=== PATIENT | male | born 1985 | race Caucasian/White ===

== ENCOUNTER 2019-10-01 16:17 | Emergency (ER) | payer MEDICARE, OTHER ==
[2019-10-01] MEDS ORDERED: Metoclopramide TAB* 10 MG PO ONE (16:34)
[2019-10-01] MEDS ORDERED: Ketorolac TAB * 10 MG TAB PO ONE (16:34)
[2019-10-01] MEDS ORDERED: diPHENhydraMINE PO* 25 MG PO ONE (16:35)
--- NOTE | 2019-10-01 16:36 | ED ---
Headache - HPI Summary HPI Summary: Patient complains of migraine headache 2 days with associated blurred vision, dizziness, nausea and vomiting, and dental pain 5 months. Patient doesn't know if migraine is secondary to dental pain, has appointment in 3 days for 5 teeth to be removed by dental surgery. History of migraines. Denies trauma, fever, cough, sore throat, CP, SOB, diarrhea, abdominal pain, change in urine, change in BM. Medical history is migraines, PTSD, anxiety. Patient has tried hydromorphone at milligrams at 7 AM and again at 3 PM, sumatriptan and Zofran all with no relief. - History Of Current Complaint Chief Complaint: EDHeadache Stated Complaint: HEADACHE Time Seen by Provider: 10/01/19 16:31 Hx Obtained From: Patient, Family/Trailer Rental Clerk Onset/Duration: Gradual Onset, Started days ago Initially Headache Was: Severe Currently Pain Is: Severe Timing: Constant Character: Sharp, Dull, Throbbing, Migraine Location of Headache: Diffuse Aggravating Factor: Exertion, Bright Lights Allevating Factors: Nothing Associated Signs And Symptoms: Dizziness, Nausea, Vomiting, Visual Changes - Allergies/Home Medications Allergies/Adverse Reactions: Allergies Allergy/AdvReac Type Severity Reaction Status Date / Time balsam maria elena Allergy Severe Hives Verified 09/29/19 08:17 formaldehyde Allergy Severe Hives Verified 09/29/19 08:17 penicillin G Allergy Severe Hives/Diff. Verified 09/29/19 08:17 Breathing/I tching prednisone Allergy Severe Itching Verified 09/29/19 08:17 propylene glycol Allergy Severe Hives Verified 09/29/19 08:17 aspirin Allergy Mild Unknown Verified 09/29/19 08:17 Reaction Details adhesive Allergy See Comment Verified 09/29/19 08:17 tomato Allergy Rash Verified 09/29/19 08:17 doxycycline AdvReac Severe GI Upset Verified 09/29/19 08:17 clindamycin AdvReac Nausea Verified 09/29/19 08:17 isopropamide AdvReac Nausea Verified 09/29/19 08:17 cinnamic aldehyde Allergy Severe Hives Uncoded 09/29/19 08:17 Methyldibromo Glutaronitrite Allergy Severe Hives Uncoded 09/29/19 08:17 Seafood Allergy Intermediate GI Upset Uncoded 09/29/19 08:17 rubbing alcohol Allergy Hives Uncoded 09/29/19 08:17 PMH/Surg Hx/FS Hx/Imm Hx Endocrine/Hematology History: Reports: Hx Blood Transfusions Denies: Hx Diabetes, Hx Sickle Cell Disease, Hx Thyroid Disease Cardiovascular History: Denies: Hx Hypertension, Hx Pacemaker/ICD, Other Cardiovascular Problems/ Disorders Respiratory History: Reports: Hx Asthma - HAS INHALER, Hx Chronic Bronchitis, Hx Pneumonia, Other Respiratory Problems/Disorders - History of pneumonia 08/22 Denies: Hx Chronic Obstructive Pulmonary Disease (COPD) GI History: Reports: Hx Gastroesophageal Reflux Disease - PT TAKES TUMS WHEN NEEDED, Hx Irritable Bowel - MILD SINCE REMOVAL OF GALLBLADDER, Hx Jaundice - jaundiced at Denies: Hx Ulcer, Other GI Disorders History: Reports: Hx Kidney Stones - ON AND OFF Denies: Hx Renal Disease, Other Problems/Disorders Musculoskeletal History: Reports: Hx Arthritis - Arthritis, knees and spine, Hx Back Problems Denies: Hx Scoliosis, Other Musculoskeletal History Sensory History: Reports: Hx Contacts or Glasses - GLASSES Denies: Hx Hearing Aid Opthamlomology History: Reports: Hx Contacts or Glasses - GLASSES EENT History: Denies: Hx Deafness Neurological History: Reports: Hx Migraine Denies: Hx Headaches, Other Neuro Impairments/Disorders Psychiatric History: Reports: Hx Anxiety, Hx Depression, Hx Panic Disorder, Hx Post Traumatic Stress Disorder, Hx Inpatient Treatment, Hx Suicide Attempt - States not in last 5 years Denies: Other Psychiatric Issues/Disorders - Surgical History Surgery Procedure, Year, and Place: GALLBLADDER 2011, ORAL X 9, RIGHT KNEE X2,. LSP 04/2018. INJECTIONS IN SPINE Hx Anesthesia Reactions: No - SLEEPS ALONG TIME AFTER Infectious Disease History: No Infectious Disease History: Denies: Hx Hepatitis, Hx Human Immunodeficiency Virus (HIV), History Other Infectious Disease, Traveled Outside the [place] in Last 30 Days - Family History Known Family History: Positive: Diabetes, Other - cancer - Social History Alcohol Use: Rare Alcohol Amount: 3-4 times yearly Substance Use Type: Reports: Marijuana Substance Use Comment - Amount & Last Used: has rx Smoking Status (MU): Never Smoked Tobacco Type: Cigarettes Amount Used/How Often: 1 ppd for 6 years Length of Time of Smoking/Using Tobacco: 6 yrs Have You Smoked in the Last Year: No Review of Systems Constitutional: Negative Positive: Photophobia, Blurred Vision Positive: Dental Pain Cardiovascular: Negative Respiratory: Negative Positive: Vomiting, Nausea Genitourinary: Negative Musculoskeletal: Negative Skin: Negative Positive: Headache Psychological: Normal All Other Systems Reviewed And Are Negative: Yes Physical Exam - Summary Physical Exam Summary: Neuro exam normal. Pinpoint pupils. Triage Information Reviewed: Yes Vital Signs On Initial Exam: Initial Vitals Temp Pulse Resp BP Pulse Ox 99 F 74 20 107/77 99 10/01/19 16:23 10/01/19 16:23 10/01/19 16:23 10/01/19 16:23 10/01/19 16:23 Vital Signs Reviewed: Yes Appearance: Positive: Well-Appearing Skin: Positive: Warm Head/Face: Positive: Normal Head/Face Inspection Eyes: Positive: Normal ENT: Positive: Normal ENT inspection Dental: Positive: Gross Decay/Caries @, Dental Fracture @ Neck: Positive: Supple Respiratory/Lung Sounds: Positive: Clear to Auscultation Cardiovascular: Positive: Normal Abdomen Description: Positive: Nontender Musculoskeletal: Positive: Normal Neurological: Positive: Normal Psychiatric: Positive: Normal AVPU Assessment: Alert - [place] Coma Scale Best Eye Response: 4 - Spontaneous Best Motor Response: 6 - Obeys Commands Best Verbal Response: 5 - Oriented Coma Scale Total: 15 Procedures - Sedation Patient Received Moderate/Deep Sedation with Procedure: No Diagnostics - Vital Signs Vital Signs Temp Pulse Resp BP Pulse Ox 10/01/19 16:23 99 F 74 20 107/77 99 - Laboratory Lab Statement: Any lab studies that have been ordered have been reviewed, and results considered in the medical decision making process. Headache Course/Dx - Course Course Of Treatment: Patient complains of migraine headache 2 days with associated blurred vision, dizziness, nausea and vomiting, and dental pain 5 months. Patient doesn't know if migraine is secondary to dental pain, has appointment in 3 days for 5 teeth to be removed by dental surgery. History of migraines. Denies trauma, fever, cough, sore throat, CP, SOB, diarrhea, abdominal pain, change in urine, change in BM. Medical history is migraines, PTSD, anxiety. Patient has tried hydromorphone at milligrams at 7 AM and again at 3 PM, sumatriptan and Zofran all with no relief. Vital signs within normal limits. Headache symptoms improved with Dilaudid and migraine cocktail. Patient has existing Rx for hydrocodone and hydromorphone. Patient states he developed heartburn after taking Pepcid. Relieved With Maalox. - Diagnoses Provider Diagnoses: Migraine, Pain, dental, Heartburn Discharge ED - Sign-Out/Discharge Documenting (check all that apply): Patient Departure - Discharge Plan Condition: Stable Disposition: HOME Prescriptions: Lidocaine 2% VISCOUS* [Xylocaine 2% Viscous*] 15 ml SWISH SPIT Q6H PRN #1 btl PRN Reason: Pain - Moderate Patient Education Materials: Migraine Headache (ED), Toothache (ED) Referrals: Markos Caldeorn MD [Primary Care Provider] - Additional Instructions: Continue taking prescription pain medications for dental pain and migraine. Follow-up with your dental surgeon at your scheduled appointment. Follow-up with your neurologist Dr. Mccormack for migraines. - Billing Disposition and Condition Condition: STABLE Disposition: Home
--- OUTSIDE RECORDS SUMMARY | 2019-10-01 17:38 | XMS REPORT | Continuity of Care Document ---
:1985 External Reference #:[id number] Author Name Brooks Mccormack M.D. (transmitted by agent of provider Bibi Murillo ) Address [address], [place] [address] Care Team Providers Name Role Phone Markos Calderon MD - Family Medicine Care Team Information [place] [phone] Jovanny Zepeda MD - Sports Care Team Information [place] [phone] Medicine Edgar Lozano DO - Interventional Care Team Information [place] [phone] Pain Medicine Problems Active Problems Provider Date Chondromalacia of patella Tarik Rubio M.D. Onset: 02/25/2015 Lumbar radiculopathy Joel López M.D. Onset: 03/27/2016 Migraine without aura, not refractory Chiqui Garay M.D. Onset: 2016 Displacement of lumbar intervertebral disc Joel López M.D. Onset: 2017 without myelopathy Convalescence after surgery Joel López M.D. Onset: 04/25/2018 Atypical facial pain Brooks Mccormack M.D. Onset: 09/18/2019 Social History Type Date Description Comments Sex Unknown Tobacco Use Start: Unknown End: Former Cigarette Smoker Unknown Smoking Status Reviewed: 09/18/19 Former Cigarette Smoker ETOH Use Rarely consumes alcohol Recreational Drug Use Denies Drug Use Tobacco Use Start: Unknown End: Patient is a former smoker Unknown Exercise Type/Frequency Does not exercise Allergies, Adverse Reactions, Alerts Active Allergies Reaction Severity Comments Date Penicillins Hives, Itching, swelling 10/03/2013 Aspirin childhood reaction 03/21/2014 Amoxicillin Hives, Itching, swelling 02/25/2015 Clindamycin Hives 02/25/2015 Alcohol rubbing skin gets dry and scaley 12/27/2017 Doxycycline vomiting 01/20/2019 Tomatoes Hives Moderate 05/16/2019 Medications Active Medications SIG Qnty Indications Ordering Provider Date Pregabalin 1 tablet twice a 60caps G50.1 Dav Tafoya, 08/10/2019 25mg day N.P. Capsules Metoclopramide HCL Take one tab po 9tabs Joel Wilson, 05/16/2019 5mg every 8 hours, M.D. Tablets as needed for nausea for 3 days. Sumatriptan Succinate 1/2-1 tab by 12tabs G43.009 Dav Tafoya, 2016 mouth as needed N.P. 100mg Tablets Hydrocodone-Acetamino 1 by mouth every Unknown phen 4-6 hours prn. 10-325mg Tablets Valium 1-1 /2 as Unknown 5mg Tablets needed anxiety Proair HFA 2 puffs by mouth Unknown 108(90Base) every 4 hours as mcg/Act Aerosol needed Gaviscon Extra as needed with Unknown Strength meals ( helps with nausea , 254-237.5mg/5ML heartburn ) Suspension Zyrtec Allergy one tab by mouth Unknown 20mg everyday Capsules Multi Adult Gummies 1 by mouth every Unknown day Chewtabs Aleve 1-2 by mouth Unknown 220mg Capsules twice a day as needed Prozac one by mouth Unknown 20mg Capsules twice a day on 02/24/18, states he is currently taking 60 MG daily Riboflavin 1 by mouth every [facility], 400mg day M.D. Tablets Co Q 10 1 by mouth twice Unknown 100mg Capsules a day Hydromorphone HCL Unknown 2mg Tablets Medications Administered in Office Medication SIG Qnty Indications Ordering Date Provider Methylprednisolone Acetate Inject 0.5 mL 1ml G43.009 Joel Mcmahon 05/16/2019 into the right [place], M.D. 40mg/ml Suspension and left inion between the mid occipital and mastoid process. Immunizations Description No Information Available Vital Signs Date Vital Result Comment 09/18/2019 2:04pm Height 74 inches 6'2" Weight 239.00 lb Heart Rate 86 /min BP Systolic 138 mmHg BP Diastolic 100 mmHg BMI (Body Mass Index) 30.7 kg/m2 08/10/2019 11:34am Height 74 inches 6'2" Weight 248.50 lb Heart Rate 88 /min BP Systolic Sitting 132 mmHg BP Diastolic Sitting 94 mmHg Respiratory Rate 20 /min BMI (Body Mass Index) 31.9 kg/m2 Results Test Acquired Date Facility Test Result H/L Range Note Laboratory test 08/17/2019 [facility] Erythrocyte Sed 27 mm/Hr High 0-[address] [place] [address] [phone] C Reactive Protein 7.04 mg/L Normal <8.01 CBC Auto 08/10/2019 [facility] White Blood 12.3 10^3/uL High 3.5-10.[address] [place] [address] [phone] Red Blood Count 4.91 10^6/uL Normal 4.18-5.48 Hemoglobin 15.0 g/dL Normal 14.0-18.0 Hematocrit 44 % Normal 42-52 Mean Corpuscular Volume 90 fL Normal 80-94 Mean Corpuscular Hemoglobin 31 pg Normal 27-31 Mean Corpuscular HGB Conc 34 g/dL Normal 31-36 Red Cell Distribution Width 14 % Normal 10-15 Platelet Count 340 10^3/uL Normal 150-450 Mean Platelet Volume 7.7 fL Normal 7.4-10.4 Abs Neutrophils 7.7 10^3/uL Normal 1.5-7.7 Abs Lymphocytes 3.5 10^3/uL Normal 1.0-4.8 Abs Monocytes 0.7 10^3/uL Normal 0-0.8 Abs Eosinophils 0.3 10^3/uL Normal 0-0.6 Abs Basophils 0.1 10^3/uL Normal 0-0.2 Abs Nucleated RBC 0.0 10^3/uL Granulocyte % 63.2 % Lymphocyte % 28.4 % Monocyte % 5.8 % Eosinophil % 2.1 % Basophil % 0.5 % Nucleated Red Blood Cells % 0.0 Comp Metabolic 08/10/2019 [facility] Sodium 141 mmol/L Normal 135-[address] [place] [address] [phone] Potassium 4.4 mmol/L Normal 3.5-5.0 Chloride 106 mmol/L Normal 101-111 Co2 Carbon Dioxide 28 mmol/L Normal 22-32 Anion Gap 7 mmol/L Normal 2-11 Glucose 80 mg/dL Normal 70-100 Blood Urea Nitrogen 13 mg/dL Normal 6-24 Creatinine 0.67 mg/dL Normal 0.67-1.17 BUN/Creatinine Ratio 19.4 Normal 8-20 Calcium 9.6 mg/dL Normal 8.6-10.3 Total Protein 7.1 g/dL Normal 6.4-8.9 Albumin 4.3 g/dL Normal 3.2-5.2 Globulin 2.8 g/dL Normal 2-4 Albumin/Globulin Ratio 1.5 Normal 1-3 Total Bilirubin 0.50 mg/dL Normal 0.2-1.0 Alkaline Phosphatase 90 U/L Normal 34-104 Alt 53 U/L High 7-52 Ast 21 U/L Normal 13-39 Egfr Non- 136.6 >60 Egfr 165.3 >60 1 Laboratory test 08/10/2019 [facility] Erythrocyte Sed 31 mm/Hr High 0-[address] [place] [address] [phone] C Reactive Protein 9.60 mg/L High <8.01 Neutrophil Cytoplasmic 08/10/2019 [facility] C-Anca Negative Negative AB [address] [place] [address] [phone] P-Anca Negative Negative 2 Laboratory test 08/10/2019 [facility] Complement C3 157 mg/dL 75 - 175 3 finding [address] [place] [address] [phone] Complement C4 35 mg/dL 14 - 40 4 1 Because ethnic data is not always readily available, this report includes an eGFR for both -Americans and non- Americans. The National Kidney Disease Education Program (NKDEP) does not endorse the use of the MDRD equation for patients that are not between the ages of 18 and 70, are , have extremes of body size, muscle mass, or nutritional status, or are non- or non-. According to the National Kidney Foundation, irrespective of diagnosis, the stage of the disease is based on the level of kidney function: Stage Description GFR(mL/min/1.73 m(2)) 1 Kidney damage with normal or decreased GFR 90 2 Kidney damage with mild decrease in GFR 60-89 3 Moderate decrease in GFR 30-59 4 Severe decrease in GFR 15-29 5 Kidney failure <15 (or dialysis) 2 Negative for cANCA and pANCA patterns by immunofluorescence. ADDITIONAL INFORMATION This test was developed and its performance characteristics determined by [facility] in a manner consistent with CLIA requirements. This test has not been cleared or approved by the U.S. Food and Drug Administration. Test Performed by: [place] [address] Medical Imaging Technician: Nabeel Thomas M.D. Ph.D.; CLIA# [id number] 3 Test Performed by: [place] [address] Medical Imaging Technician: Nabeel Thomas M.D. Ph.D.; CLIA# [id number] 4 Test Performed by: [place] [address] Medical Imaging Technician: Nabeel Thomas M.D. Ph.D.; CLIA# [id number] Procedures Date Code Description Status 05/16/2019 63668 Injection For Nerve Block, Greater Occipital Nerve Completed Medical Devices Description No Information Available Encounters Type Date Location Provider Dx Diagnosis Office Visit 09/18/2019 [facility] Brooks Mccormack, G43.009 Migraine w/o aura, 2:15[facility] not intractable, w/o status migrainosus G50.1 Atypical facial pain Office 08/10/2019 [facility] G43.009 Migraine w/o Visit 11:[facility]a [facility] Michelet NParker aura, not intractable, w/o status migrainosus G50.1 Atypical facial pain M54.5 Low back pain Assessments Date Code Description Provider 09/18/2019 G43.009 Migraine without aura, not intractable, Brooks Mccormack M.D. without status migra 09/18/2019 G50.1 Atypical facial pain Brooks Mccormack M.D. 08/10/2019 G43.009 Migraine without aura, not intractable, Dav Tafoya, N.P. without status migra 08/10/2019 G50.1 Atypical facial pain Dav Tafoya, N.P. 08/10/2019 M54.5 Low back pain Dav Tafoya, N.P. 05/16/2019 G43.009 Migraine without aura, not intractable, Mark Anthony Van, MARY without status migra Plan of Treatment Future Appointment(s):12/05/2019 12:00 pm - Brooks Mccormack M.D. at [facility]10/26/2019 10:00 am - Brooks Mccormack M.D. at [id number]/18/2019 - Brooks Mcocrmack M.D.G43.009 Migraine without aura, not intractable, without status migraFollow up:Follow up 12 [id number] Atypical facial pain Functional Status Description No Information Available Mental Status Description No Information Available Referrals Refer to Dr Reason for Referral Status Appt Kristofer Thomas MD Sent [address] [place] [phone]
[2019-10-01] MEDS ORDERED: HYDROmorphone TAB* 2 MG PO ONE (17:40)
[2019-10-01] MEDS ORDERED: Famotidine TAB* 20 MG PO ONE (19:42)
[2019-10-01] MEDS: Lidocaine 2% VISCOUS* 15 ML UDC PO ONE ×2 (19:59→21:29)
[2019-10-01] MEDS ORDERED: Al Hydrox/Mg Hydrox/Simet LIQ* 30 ML UDC PO ONE (20:23)
[2019-10-01 21:26] VITALS: BP 130/93
== END 2019-10-01 21:26 | disposition home or self-care (01) ==
LOC: ED 16:17
DX: G43.909 Migraine, unspecified, not intractable, without status migrainosus (principal); K08.89 Other specified disorders of teeth and supporting structures; R12 Heartburn; J45.909 Unspecified asthma, uncomplicated; K21.9 Gastro-esophageal reflux disease without esophagitis; F41.9 Anxiety disorder, unspecified; F32.9 Major depressive disorder, single episode, unspecified; F43.10 Post-traumatic stress disorder, unspecified; Z87.891 Personal history of nicotine dependence; Z88.1 Allergy status to other antibiotic agents; Z88.0 Allergy status to penicillin; Z88.8 Allergy status to other drugs, medicaments and biological substances
CPT/HCPCS: 99283; A9270-GY

== ENCOUNTER 2019-10-07 19:57 | Emergency (ER) | payer MEDICARE, OTHER ==
[2019-10-07] MEDS ORDERED: Ketorolac INJ* 30 MG/ML 1 ML VIAL IV ONE (20:27)
[2019-10-07] MEDS ORDERED: diPHENhydraMINE IV* 50 MG/ML 1 ml VIAL (BENADRYL) IV ONE (20:27)
[2019-10-07] MEDS ORDERED: NS 0.9% 1000 ML** 1,000 ML IV ONE ×2 (20:27→22:17)
--- NOTE | 2019-10-07 20:28 | ED ---
Headache - HPI Summary HPI Summary: Patient with history of chronic migraines complains of migraine status post multiple tooth extraction 4 days ago. Migraine pain described same as usual but more intense this time. Patient is followed by Neurologist Dr. Wilson who called ED to request IV fluids, Zofran, Toradol and magnesium for patient. Patient denies any other pain, injury or symptoms. - History Of Current Complaint Chief Complaint: EDHeadache Stated Complaint: MIGRAINE PER PT Time Seen by Provider: 10/07/19 20:12 Hx Obtained From: Patient Onset/Duration: Gradual Onset, Started days ago Initially Headache Was: Severe Currently Pain Is: Severe Timing: Days Character: Dull, Throbbing, Pressure, Typical Headache, Migraine Aggravating Factor: Bright Lights Allevating Factors: Nothing Associated Signs And Symptoms: Nausea, Vomiting - Allergies/Home Medications Allergies/Adverse Reactions: Allergies Allergy/AdvReac Type Severity Reaction Status Date / Time loly maria elena Allergy Severe Hives Verified 09/29/19 08:17 formaldehyde Allergy Severe Hives Verified 09/29/19 08:17 penicillin G Allergy Severe Hives/Diff. Verified 09/29/19 08:17 Breathing/I tching prednisone Allergy Severe Itching Verified 09/29/19 08:17 propylene glycol Allergy Severe Hives Verified 09/29/19 08:17 aspirin Allergy Mild Unknown Verified 09/29/19 08:17 Reaction Details adhesive Allergy See Comment Verified 09/29/19 08:17 tomato Allergy Rash Verified 09/29/19 08:17 doxycycline AdvReac Severe GI Upset Verified 09/29/19 08:17 clindamycin AdvReac Nausea Verified 09/29/19 08:17 isopropamide AdvReac Nausea Verified 09/29/19 08:17 cinnamic aldehyde Allergy Severe Hives Uncoded 09/29/19 08:17 Methyldibromo Glutaronitrite Allergy Severe Hives Uncoded 09/29/19 08:17 Seafood Allergy Intermediate GI Upset Uncoded 09/29/19 08:17 rubbing alcohol Allergy Hives Uncoded 09/29/19 08:17 Home Medications: Home Medications Azithromycin 1 tab PO DAILY 10/07/19 [History Confirmed 10/08/19] Chlorhexidine MW 0.12% 473ML* [Peridex Mouth Wash 0.12%] 1 tbsp PO QID 10/07/19 [History Confirmed 10/08/19] HYDROmorphone TAB* [Dilaudid Tab*] 1 tab PO QID 10/07/19 [History Confirmed 10/26] Hydrocodone/Acetaminophen [Hydrocodone-Acetamin 10-325 mg] 1 tab PO QID PRN 09/25 [History Confirmed 10/08/19] PMH/Surg Hx/FS Hx/Imm Hx Endocrine/Hematology History: Reports: Hx Blood Transfusions Denies: Hx Diabetes, Hx Sickle Cell Disease, Hx Thyroid Disease Cardiovascular History: Denies: Hx Hypertension, Hx Pacemaker/ICD, Other Cardiovascular Problems/ Disorders Respiratory History: Reports: Hx Asthma - HAS INHALER, Hx Chronic Bronchitis, Hx Pneumonia, Other Respiratory Problems/Disorders - History of pneumonia 08/22 Denies: Hx Chronic Obstructive Pulmonary Disease (COPD) GI History: Reports: Hx Gastroesophageal Reflux Disease - PT TAKES TUMS WHEN NEEDED, Hx Irritable Bowel - MILD SINCE REMOVAL OF GALLBLADDER, Hx Jaundice - jaundiced at Denies: Hx Ulcer, Other GI Disorders History: Reports: Hx Kidney Stones - ON AND OFF Denies: Hx Renal Disease, Other Problems/Disorders Musculoskeletal History: Reports: Hx Arthritis - Arthritis, knees and spine, Hx Back Problems Denies: Hx Scoliosis, Other Musculoskeletal History Sensory History: Reports: Hx Contacts or Glasses - GLASSES Denies: Hx Deafness, Hx Hearing Aid Opthamlomology History: Reports: Hx Contacts or Glasses - GLASSES Neurological History: Reports: Hx Migraine Denies: Hx Headaches, Other Neuro Impairments/Disorders Psychiatric History: Reports: Hx Anxiety, Hx Depression, Hx Panic Disorder, Hx Post Traumatic Stress Disorder, Hx Inpatient Treatment, Hx Suicide Attempt - States not in last 5 years Denies: Other Psychiatric Issues/Disorders - Surgical History Surgery Procedure, Year, and Place: GALLBLADDER 2012, ORAL X 9, RIGHT KNEE X2,. LSP 04/2018. INJECTIONS IN SPINE Hx Anesthesia Reactions: No - SLEEPS ALONG TIME AFTER Infectious Disease History: No Infectious Disease History: Denies: Hx Hepatitis, Hx Human Immunodeficiency Virus (HIV), History Other Infectious Disease, Traveled Outside the [place] in Last 30 Days - Family History Known Family History: Positive: Diabetes, Other - cancer - Social History Alcohol Use: None Alcohol Amount: 3-4 times yearly Substance Use Type: Reports: Marijuana Substance Use Comment - Amount & Last Used: has rx Smoking Status (MU): Current Some Day Smoker Type: Cigarettes Amount Used/How Often: 1 ppd for 6 years Length of Time of Smoking/Using Tobacco: 6 yrs Have You Smoked in the Last Year: No Review of Systems Constitutional: Negative Eyes: Negative ENT: Negative Cardiovascular: Negative Respiratory: Negative Positive: Vomiting, Nausea Genitourinary: Negative Musculoskeletal: Negative Skin: Negative Positive: Headache Psychological: Normal All Other Systems Reviewed And Are Negative: Yes Physical Exam Triage Information Reviewed: Yes Vital Signs On Initial Exam: Initial Vitals Temp Pulse Resp BP Pulse Ox 97.9 F 84 22 142/98 98 10/07/19 20:01 10/07/19 20:01 10/07/19 20:01 10/07/19 20:01 10/07/19 20:01 Vital Signs Reviewed: Yes Appearance: Positive: Well-Appearing Skin: Positive: Warm Head/Face: Positive: Normal Head/Face Inspection Eyes: Positive: Normal Neck: Positive: Supple Respiratory/Lung Sounds: Positive: Clear to Auscultation Cardiovascular: Positive: Normal Abdomen Description: Positive: Nontender Musculoskeletal: Positive: Normal Neurological: Positive: Normal Psychiatric: Positive: Normal AVPU Assessment: Alert - [place] Coma Scale Best Eye Response: 4 - Spontaneous Best Motor Response: 6 - Obeys Commands Best Verbal Response: 5 - Oriented Coma Scale Total: 15 Procedures - Sedation Patient Received Moderate/Deep Sedation with Procedure: No Diagnostics - Vital Signs Vital Signs Temp Pulse Resp BP Pulse Ox 10/07/19 20:01 97.9 F 84 22 142/98 98 - Laboratory Lab Statement: Any lab studies that have been ordered have been reviewed, and results considered in the medical decision making process. Headache Course/Dx - Course Course Of Treatment: Patient with history of chronic migraines complains of migraine status post multiple tooth extraction 4 days ago. Migraine pain described same as usual but more intense this time. Patient is followed by Neurologist Dr. Wilson who called ED to request IV fluids, Zofran, Toradol and magnesium for patient. Patient denies any other pain, injury or symptoms. Vital signs within normal limits. Migraine symptoms and dental pain somewhat improved with GI cocktail - Diagnoses Provider Diagnoses: Migraine, Pain, dental Discharge ED - Sign-Out/Discharge Documenting (check all that apply): Patient Departure - Discharge Plan Condition: Stable Disposition: HOME Patient Education Materials: Migraine Headache (ED), Toothache (ED) Referrals: Markos Calderon MD [Primary Care Provider] - Additional Instructions: Follow-up with your neurologist and neurosurgeon for management of recurrent migraines and postsurgical dental pain. Return to the ED for any new or worsening symptoms. - Billing Disposition and Condition Condition: STABLE Disposition: Home
[2019-10-07] MEDS ORDERED: Magnesium Sulfate 2 GM IV* 2 GM/50 ML BAG IVPB ONE (20:59)
[2019-10-07] MEDS ORDERED: Ondansetron INJ* 2 MG/ML VIAL IV ONE (21:00)
[2019-10-08 00:15] VITALS: BP 115/68
== END 2019-10-08 00:15 | disposition home or self-care (01) ==
LOC: ED 19:57
DX: G43.909 Migraine, unspecified, not intractable, without status migrainosus (principal); K08.89 Other specified disorders of teeth and supporting structures; K21.9 Gastro-esophageal reflux disease without esophagitis; J45.909 Unspecified asthma, uncomplicated; Z88.6 Allergy status to analgesic agent; F41.9 Anxiety disorder, unspecified; F32.9 Major depressive disorder, single episode, unspecified; Z72.0 Tobacco use; Z88.0 Allergy status to penicillin; Z88.1 Allergy status to other antibiotic agents; E88.2 Lipomatosis, not elsewhere classified; Z79.891 Long term (current) use of opiate analgesic; Z87.442 Personal history of urinary calculi; Z98.818 Other dental procedure status
CPT/HCPCS: 96361; 96365; 96375; 99283; J1200; J1885; J2405; J3475